=== PATIENT | male | born 1945 | race Caucasian/White ===

== ENCOUNTER 2021-03-27 08:08 | Day surgery (SDC) | payer MEDICARE ==
[~2021-03-27] VITALS: Ht 177.8 cm; Wt 109.0 kg
[2021-03-27 08:30] VITALS: BP 129/72
[2021-03-27] MEDS ORDERED: METO-411 PO (08:38)
[2021-03-27] MEDS ORDERED: GEMF600T89 PO (08:38)
[2021-03-27] MEDS ORDERED: ROSU40TA PO (08:38)
[2021-03-27] MEDS ORDERED: METF-900 PO (08:38)
[2021-03-27] MEDS ORDERED: AMLO5TAB PO (08:38)
[2021-03-27] MEDS ORDERED: NICO-731 TOP (08:38)
[2021-03-27 09:08] LABS: BASOPHILS # (AUTO) 0.2 X10'3 (0-0.2); EOSINOPHILS # (AUTO) 1.6 X10'3 (0-0.9); EOSINOPHILS % (AUTO) 10.4 % (0-6); HEMATOCRIT 29.3 % (42.0-52.0); HEMOGLOBIN 9.4 g/dl (14.0-17.9); LYMPHOCYTES # (AUTO) 1.4 X10'3 (1.1-4.8); LYMPHOCYTES % (AUTO) 8.9 % (21-51); MEAN CORPUSCULAR HEMOGLOBIN 26.4 PG (27.0-31.0); MEAN CORPUSCULAR VOLUME 82.6 FL (78-98); MEAN PLATELET VOLUME 7.5 FL (7.4-10.4); MONOCYTES # (AUTO) 1.5 X10'3 (0-0.9); MONOCYTES % (AUTO) 9.3 % (2-12); NEUTROPHILS # (AUTO) 10.9 X10'3 (1.8-7.7); NEUTROPHILS % (AUTO) 70.4 % (42-75); PLATELET COUNT 564 X10'3 (140-440); RED BLOOD COUNT 3.55 X10'6 (4.70-6.10); RED CELL DISTRIBUTION WIDTH 15.8 % (11.5-14.5); WHITE BLOOD COUNT 15.5 X10'3 (4.5-11.0)
[2021-03-27] MEDS ORDERED: LIDOcaine 1% 30ml preserv. free vial IJ STA (10:42)
[2021-03-27 11:00] VITALS: BP 137/74
--- NOTE | 2021-03-27 11:00 | NUR ---
Dr Lala finished ultrasound and canceled biopsy d/t unable to locate lesion. pt dressed, iv removed with canula intact. pt taken out via w/c no distress noted.
== END 2021-03-27 11:00 | disposition home or self-care (01) ==
LOC: SSTAY O 08:08
PROVIDERS: ATTEND Radiology Diagnostic Radiology
DX: K76.89 Other specified diseases of liver (principal); Z53.8 Procedure and treatment not carried out for other reasons; C34.32 Malignant neoplasm of lower lobe, left bronchus or lung; I10 Essential (primary) hypertension; E11.9 Type 2 diabetes mellitus without complications; Z79.84 Long term (current) use of oral hypoglycemic drugs; Z79.899 Other long term (current) drug therapy; Z96.659 Presence of unspecified artificial knee joint; F17.210 Nicotine dependence, cigarettes, uncomplicated
CPT/HCPCS: 76705; 85025; 85610

== ENCOUNTER 2021-04-03 07:04 | Day surgery (SDC) | payer MEDICARE ==
[~2021-04-03] VITALS: Ht 177.8 cm; Wt 68.3 kg
[~2021-04-03 07:04] MED LIST: AMLO5TAB PO; GEMF600T89 PO; METF-900 PO; METO-411 PO; NICO-731 TOP; ROSU40TA PO
[2021-04-03 08:07] VITALS: BP 124/68
[2021-04-03] MEDS ORDERED: LIDOcaine 1% 30ml preserv. free vial IJ STA (08:09)
[2021-04-03 08:30] VITALS: BP 118/63
[2021-04-03 08:45] VITALS: BP 124/73
[2021-04-03 09:00] VITALS: BP 137/92
[2021-04-03 09:15] VITALS: BP 140/89
[2021-04-03 09:30] VITALS: BP 127/68
== END 2021-04-03 09:55 | disposition home or self-care (01) ==
LOC: SSTAY O 07:04
PROVIDERS: ATTEND Preventive Medicine Aerospace Medicine
DX: J90 Pleural effusion, not elsewhere classified (principal); E11.9 Type 2 diabetes mellitus without complications; E78.5 Hyperlipidemia, unspecified; I10 Essential (primary) hypertension; Z85.118 Personal history of other malignant neoplasm of bronchus and lung; Z96.659 Presence of unspecified artificial knee joint; Z87.891 Personal history of nicotine dependence; Z79.899 Other long term (current) drug therapy; Z79.84 Long term (current) use of oral hypoglycemic drugs
CPT/HCPCS: 32555